=== PATIENT | male | born 1975 | race Caucasian/White ===

== ENCOUNTER 2020-04-13 13:45 | Emergency (ER) | payer OTHER ==
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
[2020-04-13] MEDS ORDERED: Bacitracin Oint 1 GM U/D Packet TOP ONE (14:01)
== END 2020-04-13 14:09 | disposition home or self-care (01) ==
LOC: DL.ED 13:45
DX: S01.01XA Laceration without foreign body of scalp, initial encounter (principal); F17.210 Nicotine dependence, cigarettes, uncomplicated; W22.8XXA Striking against or struck by other objects, initial encounter
CPT/HCPCS: 12001; 99282-25